=== PATIENT | female | born 1955 | race Two or more races ===

== ENCOUNTER 2023-08-04 21:43 | Emergency (ER) | payer OTHER ==
[~2023-08-04] VITALS: Ht 157.5 cm; Wt 97.1 kg
[2023-08-04] MEDS ORDERED: MONDOXYNE NL100 MG PO (21:56)
[2023-08-04] MEDS ORDERED: AMLODIPINE-OLM1 EACH PO (21:57)
[2023-08-04] MEDS ORDERED: GILPHEX TR 3901 EACH PO (21:57)
[2023-08-04] MEDS ORDERED: NEXIUM40 M1 PO (21:57)
[2023-08-04] MEDS ORDERED: CHLORTHALIDONE25 MG PO (21:58)
[2023-08-04] MEDS ORDERED: AVAPRO150 MG PO (21:58)
[2023-08-04] MEDS ORDERED: GLIPIZIDE XL2.5 MG PO (21:59)
[2023-08-04] MEDS ORDERED: ZYNCOF 400-201 EACH PO (21:59)
[2023-08-05] MEDS ORDERED: METHYLPREDNISOLONE SOD SUCC 125 MG VIAL IV STA (01:04)
[2023-08-05] MEDS ORDERED: GUAIFENESIN/DEXTROMETHORPHAN 100 MG/5 ML ML PO STA (01:06)
[2023-08-05] MEDS ORDERED: BUDESONIDE 0.5 MG/2 ML AMPUL.NEB IH STA (01:06)
[2023-08-05] MEDS ORDERED: ALBUTEROL SULFATE 3 ML/2.5 MG AMPUL.NEB IH SCH (01:15)
[2023-08-05 02:09] LABS: HEMATOCRIT 44.3 % (36.0-45.00); HEMOGLOBIN 15.1 g/dL (12.0-15.00); MEAN CELL VOLUME 87.4 fL (80.00-100.00); MEAN CORPUSCULAR HEMOGLOBIN 29.8 pg (27.00-32.0); MEAN CORPUSCULAR HGB CONC 34.1 g/dl (32.0-36.0); RED BLOOD COUNT 5.07 M/uL (4.00-6.00); RED CELL DISTRIBUTION WIDTH 14.8 % (11.5-14.5)
[2023-08-05 02:16] LABS: PLATELET COUNT 124 K/uL (150-450)
[2023-08-05 02:31] LABS: ALBUMIN 3.7 gm/dL (3.4-5.0); BILIRUBIN TOTAL 0.74 mg/dL (0.3-1.2); CALCIUM 10.4 mg/dL (8.5-10.1); CREATININE SERUM 1.13 mg/dL (0.55-1.02); GFR 48.17; GLOBULINA 3.5 G/DL (2.4-3.5); POTASSIUM 3.06 mEq/L (3.5-5.1); TOTAL PROTEIN 7.2 gm/dL (6.4-8.2)
[2023-08-05 03:19] LABS: URINE APPEARANCE Clear; URINE BILIRRUBIN Negative (NEGATIVE); URINE BLOOD Negative; URINE COLOR Yellow; URINE GLUCOSE Negative (NEGATIVE); URINE LEUKOCYTE Negative; URINE NITRATE Negative; URINE PROTEIN Negative (NEGATIVE); URINE UROBILINOGEN 0.2 E.U./dl
[2023-08-05 03:22] LABS: URINE BACTERIA 147.3 uL (0.0-1933); URINE EPITHELIAL CELLS 10.1 uL (0.0-38.8); URINE WBC 23.6 uL (0.0-23.2)
[2023-08-05 03:31] LABS: URINE RBC 1.1 uL (0.0-20.8)
[2023-08-05] MEDS ORDERED: BUDESONIDE0.5 MG/2 M IH (04:45)
[2023-08-05] MEDS ORDERED: ALBUTEROL2.5 MG/3 M IH (04:45)
[2023-08-05] MEDS ORDERED: SYMBICORT 16010.2 GM IH (04:45)
[2023-08-05 05:57] LABS: ABG PH 7.431 (7.35-7.45); ABG PO2 80.2 mmHg (80-100); ABG pCO2 40.5 mmHg (35-45); SaO2 96.2 %
[2023-08-05 05:58] LABS: BASE EXCESS 1.9 mmol/l; BICARBONATE 26.3 mmol/l (23-25); Tco2 27.6 mmol/l; allen test SATISFACTORY; o2 21 %; puncture site RADIAL RIGHT
== END 2023-08-05 04:56 ==
LOC: ER 21:44
PROVIDERS: General Practice
DX: J45.909 Unspecified asthma, uncomplicated (principal); Z20.822 Contact with and (suspected) exposure to COVID-19; I10 Essential (primary) hypertension; E11.9 Type 2 diabetes mellitus without complications; Z88.0 Allergy status to penicillin; Z88.5 Allergy status to narcotic agent; Z88.6 Allergy status to analgesic agent
CPT/HCPCS: 36415; 71046; 82803; 94644; 96365; 99283; J3490

== ENCOUNTER 2024-10-10 08:35 | Outpatient (CLI) | payer OTHER ==
[~2024-10-10 08:35] MED LIST: ALBUTEROL2.5 MG/3 M IH; AMLODIPINE-OLM1 EACH PO; AVAPRO150 MG PO; BUDESONIDE0.5 MG/2 M IH; CHLORTHALIDONE25 MG PO; GILPHEX TR 3901 EACH PO; GLIPIZIDE XL2.5 MG PO; MONDOXYNE NL100 MG PO; NEXIUM40 M1 PO; SYMBICORT 16010.2 GM IH; ZYNCOF 400-201 EACH PO
== END 2024-10-10 08:36 | disposition home or self-care (01) ==
LOC: SONOGRAMA 08:35
PROVIDERS: ATTEND Pathology Anatomic Pathology
DX: D34 Benign neoplasm of thyroid gland (principal); E07.89 Other specified disorders of thyroid; E04.1 Nontoxic single thyroid nodule